=== PATIENT | female | born 1960 | race Hispanic/Latino ===

== ENCOUNTER 2019-10-27 14:08 | Emergency (ER) | payer OTHER ==
[~2019-10-27] VITALS: Ht 160 cm; Wt 70.3 kg
[2019-10-27] MEDS ORDERED: SODIUM CHLORIDE 0.9% 1000ML 1,000 ML IV STA (14:18)
[2019-10-27] MEDS ORDERED: ONDANSETRON HCL INJ 2MG/ML 2ML 2 MG/ML VIAL IV STA (14:18)
[2019-10-27] MEDS ORDERED: MAGNESIUM/ALUMINUM/SIMETHICONE 30 ML UDC PO ONE (14:30)
[2019-10-27] MEDS ORDERED: LIDOCAINE VISC 2% SOLN 15 ML UDC PO ONE (14:30)
[2019-10-27 14:37] LABS: BASOPHILS % 0.5 % (0.0-1.0); EOSINOPHILS # (AUTO) 0.1 (0.0-0.4); EOSINOPHILS % 1.3 % (0.0-6.0); HEMOGLOBIN 14.8 g/dL (12.0-16.0); LYMPHOCYTES # (AUTO) 2.2 (1.0-3.2); LYMPHOCYTES % 34.8 % (18.0-39.1); MEAN CORPUSCULAR HEMOGLOBIN 29.9 pg (28-32); MEAN CORPUSCULAR HGB CONC 34.4 g/dL (31-35); MEAN CORPUSCULAR VOLUME 86.9 fL (81-99); MONOCYTES # (AUTO) 0.3 (0.2-0.8); NEUTROPHILS # (AUTO) 3.6 (2.1-6.9); NEUTROPHILS % 58.1 % (38.7-80.0); PLATELET COUNT 215 x10e3/uL (140-360); RED BLOOD COUNT 4.95 x10e6/uL (3.6-5.1); RED CELL DISTRIBUTION WIDTH 12.5 % (11.7-14.4)
[2019-10-27 14:46] LABS: INR 0.88; PROTHROMBIN TIME 12.4 seconds (11.9-14.5)
[2019-10-27 14:47] LABS: PARTIAL THROMBOPLASTIN TIME 27.5 seconds (23.8-35.5)
[2019-10-27] MEDS ORDERED: MAALOX/LIDOCAINE/BENADRYL/NYST 30 ML BTL PO ONE (15:00)
--- NOTE | 2019-10-27 16:01 | Diagnostic Imaging Report ---
EXAMINATION: CHEST SINGLE (PORTABLE) COMPARISON: Chest x-ray 12/16/2007 INDICATION: Abdominal pain ^JUAN ABD PAIN ^[id number] ^[id number] DISCUSSION: Frontal view of the chest obtained at 1530 hours. HEART AND MEDIASTINUM: The cardiomediastinal silhouette is unremarkable. LINES: None. LUNGS/PLEURA: The lungs are well inflated and clear. No pneumonia or pulmonary edema. No pleural effusion or pneumothorax. BONES AND SOFT TISSUES: No focal osseous lesion. The soft tissues are normal. IMPRESSION: No acute cardiopulmonary disease. Signed by: Dr. Alexandra Anderson MD on 10/27/2019 3:58 PM
--- NOTE | 2019-10-27 19:25 | NUR ---
2nd set of cardiac markers sent to lab at this time.
--- NOTE | 2019-10-27 19:26 | Emergency Department Note ---
History of Present Illnes History of Present Illness Chief Complaint: Abdominal Complaints History of Present Illness This is a 59 year old female PATIENT IN FROM HOME WITH COMPLAINTS OF SUDDEN ONSET EPIGASTRIC PAIN APPROX 1 HOUR PRIOR TO ARRIVAL; REPORTS NAUSEA WITH EPISODE. PATIENT WAS GIVEN 4 MG ZOFRAN IM BY EMS PRIOR TO ARRIVAL. 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 Any updates have been documented here. Past Medical History Recent Fever: No Clinical Suspicion of Infectio: No New/Unexplained Change in Ment: No Past Medical History: Hypertension, [place] Past Surgical History: Cholecysctectomy, Hysterectomy, PCI, , Hernia Repair Other Surgery: PCI WITH STENTS X 3 Social History Smoking Cessation: Never Smoker Counseling Performed: No Alcohol Use: Occasional Any Illegal Drug Use: No TB Exposure/Symptoms: No Physically hurt or threatened: No Other Last Tetanus: OOD Any Pre-Existing Lines (PICC,: No Is patient up to date on immun: Yes Last Flu: none Last Pneumovax: none Review of Systems Review of Systems Constitutional: Reports no symptoms EENTM: Reports no symptoms Cardiovascular: Reports no symptoms Respiratory: Reports no symptoms Gastrointestinal: Reports as per HPI, Reports abdominal pain, Reports nausea Genitourinary: Reports no symptoms Musculoskeletal: Reports no symptoms Integumentary: Reports no symptoms Neurological: Reports no symptoms Psychological: Reports no symptoms Endocrine: Reports no symptoms Hematological/Lymphatic: Reports no symptoms Physical Exam Related Data Allergies: Coded Allergies: No Known Drug Allergies (Verified Allergy, Unknown, 06/21/09) Uncoded Allergies: SHRIMP (Allergy, Mild, ITCH, 12/21/10) Triage Vital Signs Vital Signs Date Time Temp Pulse Resp B/P (MAP) Pulse Ox O2 Delivery O2 Flow Rate FiO2 10/27/19 14:08 98.8 75 16 172/95 98 Vital signs reviewed: Yes Physical Exam CONSTITUTIONAL Constitutional: Present well-developed, Present well-nourished HENT HENT: Present normocephalic, Present atraumatic, Present oropharynx clear/moist, Present nose normal HENT L/R: Present left ext ear normal, Present right ext ear normal EYES Eyes: Reports PERRL, Reports conjunctivae normal NECK Neck: Present ROM normal PULMONARY Pulmonary: Present effort normal, Present breath sounds normal CARDIOVASCULAR Cardiovascular: Present regular rhythm, Present heart sounds normal, Present capillary refill normal, Present normal rate GASTROINTESTINAL Abdominal: Present soft, Present nontender, Present bowel sounds normal GENITOURINARY Genitourinary: Present exam deferred SKIN Skin: Present warm, Present dry MUSCULOSKELETAL Musculoskeletal: Present ROM normal NEUROLOGICAL Neurological: Present alert, Present oriented x 3, Present no gross motor or sensory deficits PSYCHOLOGICAL Psychological: Present mood/affect normal, Present judgement normal Results Laboratory Result Diagram: 10/27/19 1425 Laboratory Laboratory Tests Test 10/27/19 14:25 White Blood Count 6.21 x10e3/uL (4.8-10.8) Red Blood Count 4.95 x10e6/uL (3.6-5.1) Hemoglobin 14.8 g/dL (12.0-16.0) Hematocrit 43.0 % (34.2-44.1) Mean Corpuscular Volume 86.9 fL (81-99) Mean Corpuscular Hemoglobin 29.9 pg (28-32) Mean Corpuscular Hemoglobin Concent 34.4 g/dL (31-35) Red Cell Distribution Width 12.5 % (11.7-14.4) Platelet Count 215 x10e3/uL (140-360) Neutrophils (%) (Auto) 58.1 % (38.7-80.0) Lymphocytes (%) (Auto) 34.8 % (18.0-39.1) Monocytes (%) (Auto) 5.0 % (4.4-11.3) Eosinophils (%) (Auto) 1.3 % (0.0-6.0) Basophils (%) (Auto) 0.5 % (0.0-1.0) Neutrophils # (Auto) 3.6 (2.1-6.9) Lymphocytes # (Auto) 2.2 (1.0-3.2) Monocytes # (Auto) 0.3 (0.2-0.8) Eosinophils # (Auto) 0.1 (0.0-0.4) Basophils # (Auto) 0.0 (0.0-0.1) Absolute Immature Granulocyte (auto 0.02 x10e3/uL (0-0.1) Prothrombin Time 12.4 seconds (11.9-14.5) Prothromb Time International Ratio 0.88 Activated Partial Thromboplast Time 27.5 seconds (23.8-35.5) Lab results reviewed: Yes Laboratory comments CHEMISTRIES DELAYED DUE TO MACHINES IN LABORATORY BROKE, ADMINISTRATION NOTIFIED Imaging Imaging results reviewed: Yes Impressions Procedure: [id number] DX/CHEST SINGLE (PORTABLE) Exam Date: 10/27/19 Exam Time: 153 REPORT STATUS: Signed EXAMINATION: CHEST SINGLE (PORTABLE) COMPARISON: Chest x-ray 12/16/2007 INDICATION: Abdominal pain ^JUAN ABD PAIN ^[id number] ^[id number] DISCUSSION: Frontal view of the chest obtained at 1530 hours. HEART AND MEDIASTINUM: The cardiomediastinal silhouette is unremarkable. LINES: None. LUNGS/PLEURA: The lungs are well inflated and clear. No pneumonia or pulmonary edema. No pleural effusion or pneumothorax. BONES AND SOFT TISSUES: No focal osseous lesion. The soft tissues are normal. IMPRESSION: No acute cardiopulmonary disease. Signed by: Dr. Alexandra Anderson MD on 10/27/2019 3:58 PM Procedures 12 Lead ECG Interpretation ECG Interpretation : ECG: ECG 1 Typewriter Operator Automatic: Interpreted by ED physician Date: Oct 27, 2019 Time: 14:12 Rhythm: sinus rhythm Rate: normal (73) QRS axis: normal ST segments normal: Yes T waves normal: Yes Clinical Impression: normal ECG Assessment & Plan Medical Decision Making MDM EPIGASTRIC PAIN - CHECK CBC, CHEM'S, LIPASE, ECG, CARDIACS, CXR - R/O PANCREATITIS, STEMI/NSTEMI, PNEUMONIA, CHF Reassessment Reassessment REPORT TO ONCOMING ER MD TO F/U LABS (CHEM'S, LIPASE, AND CARDIAC ENZYMES X 2) AND DISPO PT DC WITH PROTONIX, BENTYL, F/U PCP AND GI Assessment & Plan Final Impression: (1) Abdominal pain (2) Gastritis Depart Disposition: HOME, SELF-CARE Last Vital Signs Date Time Temp Pulse Resp B/P (MAP) Pulse Ox O2 Delivery O2 Flow Rate FiO2 10/27/19 18:55 98.3 59 18 148/70 99 Medications in the ED Ondansetron HCl 4 mg ONCE STAT IV Last administered on 10/27/19at 15:46; Admin Dose 4 MG; Start 10/27/19 at 14:18; Stop 10/27/19 at 14:24; Status DC Sodium Chloride 1,000 ml @ 0 mls/hr Q0M STAT IV Last administered on 10/27/19at 15:46; Admin Dose 1,000 MLS/HR; Start 10/27/19 at 14:18; Stop 10/27/19 at 14:21; Status DC Magnesium Aluminum Silicate 30 ml ONCE ONCE PO ; Start 10/27/19 at 14:30; Stop 10/27/19 at 14:31; Status UNV Magnesium Aluminum Silicate 10 ml ONCE ONCE PO Last administered on 10/27/19at 17:41; Admin Dose 10 ML; Start 10/27/19 at 15:00; Stop 10/27/19 at 15:01; Status DC Lidocaine HCl 5 ml ONCE ONCE PO ; Start 10/27/19 at 14:30; Stop 10/27/19 at 14:31; Status UNV ODALYS LESTER MD Oct 27, 2019 19:26
[2019-10-27 19:52] LABS: CREATINE KINASE 54 IU/L (29-168)
[2019-10-27 20:10] LABS: CHLORIDE 106 mmol/L (98-107); POTASSIUM 3.8 mmol/L (3.5-5.1); SODIUM 139 mmol/L (136-145)
[2019-10-27 20:11] LABS: ANION GAP 13.8 mmol/L (8-16); BLOOD UREA NITROGEN 16 mg/dL (7-26); BUN/CREATININE RATIO 23 (6-25); CALCIUM 9.1 mg/dL (8.4-10.2); CARBON DIOXIDE 23 mmol/L (22-29); CREATININE, SERUM 0.71 mg/dL (0.57-1.11); EST GLOMERULAR FILTRATION RATE > 60 ML/MIN (60-); GLUCOSE 123 mg/dL (74-118)
[2019-10-27 20:13] LABS: ALANINE AMINOTRANSFERASE 26 IU/L (0-55)
[2019-10-27 20:14] LABS: ALBUMIN/GLOBULIN RATIO 1.3 (0.8-2.0); ALKALINE PHOSPHATASE 105 IU/L (40-150); CREATINE KINASE 62 IU/L (29-168)
[2019-10-27 20:38] VITALS: BP 136/87
[2019-10-27 21:04] LABS: LIPASE 13 U/L (8-78)
== END 2019-10-27 20:50 | disposition home or self-care (01) ==
LOC: ER 14:08
DX: R10.13 Epigastric pain (principal); K29.70 Gastritis, unspecified, without bleeding; I10 Essential (primary) hypertension; I25.2 Old myocardial infarction
CPT/HCPCS: 36415; 71045; 80053; 82550; 82553; 83690; 83735; 84484; 85025; 85610; 85730; 93005; 99284; J2405; J7030

== ENCOUNTER 2023-11-08 10:04 | Emergency (ER) | payer OTHER ==
[~2023-11-08] VITALS: Ht 160 cm; Wt 77.1 kg
[2023-11-08 10:13] VITALS: TEMP 98
[2023-11-08] MEDS ORDERED: SODIUM CHLORIDE FLUSH 10 ML SYR IV PRN (10:30)
[2023-11-08] MEDS: MECLIZINE HCL 12.5 MG TAB PO ONE (10:38)
[2023-11-08 10:40] LABS: BASOPHILS % 0.4 % (0.0-1.0); EOSINOPHILS # (AUTO) 0.1 (0.0-0.4); EOSINOPHILS % 1.2 % (0.0-6.0); HEMATOCRIT 41.2 % (34.2-44.1); HEMOGLOBIN 14.4 g/dL (12.0-16.0); LYMPHOCYTES # (AUTO) 1.9 (1.0-3.2); MEAN CORPUSCULAR HEMOGLOBIN 30.8 pg (28-32); MEAN CORPUSCULAR VOLUME 88.2 fL (81-99); MONOCYTES # (AUTO) 0.3 (0.2-0.8); MONOCYTES % 4.8 % (4.4-11.3); NEUTROPHILS # (AUTO) 4.6 (2.1-6.9); NEUTROPHILS % 66.5 % (38.7-80.0); PLATELET COUNT 190 x10e3/uL (140-360); RED BLOOD COUNT 4.67 x10e6/uL (3.6-5.1); RED CELL DISTRIBUTION WIDTH 11.9 % (11.7-14.4)
[2023-11-08 10:50] LABS: INR 0.88; PROTHROMBIN TIME 12.6 seconds (11.9-14.5)
[2023-11-08 10:51] LABS: PARTIAL THROMBOPLASTIN TIME 24.1 seconds (23.8-35.5)
[2023-11-08 11:03] LABS: ALANINE AMINOTRANSFERASE 27 IU/L (0-55); ALBUMIN 3.7 g/dL (3.5-5.0); ALKALINE PHOSPHATASE 87 IU/L (40-150); ANION GAP 15.4 mmol/L (8-16); BILIRUBIN,TOTAL 0.5 mg/dL (0.2-1.2); BLOOD UREA NITROGEN 17 mg/dL (7-26); BUN/CREATININE RATIO 23 (6-25); CALCIUM 8.8 mg/dL (8.4-10.2); CARBON DIOXIDE 21 mmol/L (22-29); CHLORIDE 105 mmol/L (98-107); CREATININE, SERUM 0.75 mg/dL (0.57-1.11); EST GLOMERULAR FILTRATION RATE 90 ML/MIN (>=60); GLUCOSE 123 mg/dL (74-118); POTASSIUM 4.4 mmol/L (3.5-5.1); SODIUM 137 mmol/L (136-145); TOTAL PROTEIN 7.4 g/dL (6.5-8.1)
[2023-11-08 11:26] LABS: TROPONIN I < 0.001 ng/mL (0-0.300)
[2023-11-08 12:44] LABS: CLARITY,URINE CLEAR (CLEAR); COLOR,URINE YELLOW (YELLOW); LEUKOCYTE ESTERASE ,URINE TRACE (NEGATIVE); NITRITE,URINE NEGATIVE (NEGATIVE); PH,URINE 7 (5 - 7)
[2023-11-08 12:45] LABS: BILIRUBIN,URINE NEGATIVE (NEGATIVE); GLUCOSE, URINE NEGATIVE (NEGATIVE); KETONES,URINE NEGATIVE (NEGATIVE); PROTEIN,URINE DIPSTICK NEGATIVE (NEGATIVE); URINE UROBILINOGEN 0.2 mg/dL (0.2 - 1)
[2023-11-08 12:52] LABS: BACTERIA,URINE FEW /HPF; EPITHELIAL CELLS,URINE FEW /LPF; WBC,URINE (MAN) 0-5 /HPF (0-5)
[2023-11-08] MEDS ORDERED: MECLIZINE HCL25 MG PO (12:59)
[2023-11-08 13:17] VITALS: PULSE 64; RESP 15
[2023-11-08 13:18] VITALS: O2SAT 100
== END 2023-11-08 13:15 | disposition home or self-care (01) ==
LOC: ER 10:17
DX: H81.10 Benign paroxysmal vertigo, unspecified ear (principal); I10 Essential (primary) hypertension; I25.2 Old myocardial infarction
CPT/HCPCS: 36415; 70450; 71045; 80053; 81001; 83880; 84484; 85025; 85610; 85730; 93005; 94760; 99284; J8597